=== PATIENT | female | born 1985 | race Native Hawaiian/Other Pacific Islander ===

== ENCOUNTER 2016-12-10 08:36 | Outpatient (CLI) | payer OTHER | END 2016-12-10 19:04 | disposition home or self-care (01) | LOC: MRI 08:36 | DX: M54.17 Radiculopathy, lumbosacral region (principal) ==

== ENCOUNTER 2017-06-26 19:26 | Emergency (ER) | payer OTHER ==
[~2017-06-26] VITALS: Ht 167.6 cm; Wt 139.3 kg
[2017-06-26 21:48] LABS: PLATELET COUNT 336 K/uL (152-353)
[2017-06-26 21:56] LABS: SODIUM 138 mmol/L (136-145)
[2017-06-27 05:03] VITALS: BP 111/63; TEMP 98
== END 2017-06-27 05:06 | disposition short-term general hospital (02) ==
LOC: ED 19:26
PROVIDERS: Specialist
DX: K35.89 Other acute appendicitis (principal)
CPT/HCPCS: 36415; 80053; 81000; 81025; 82150; 83690; 85027; 96365; 96366; 99285; J0690; J2405; J3490; Q9963

== ENCOUNTER 2017-06-27 05:00 | Outpatient (CLI) | payer OTHER | END 2017-06-27 05:33 | disposition short-term general hospital (02) | LOC: AMB 05:00 | DX: K35.89 Other acute appendicitis (principal) | CPT/HCPCS: A0425; A0427 ==

== ENCOUNTER 2018-08-31 12:23 | Outpatient (CLI) | payer OTHER | END 2018-08-31 12:36 | disposition short-term general hospital (02) | LOC: AMB 12:23 | DX: R07.9 Chest pain, unspecified (principal); R06.02 Shortness of breath | CPT/HCPCS: A0425; A0427 ==

== ENCOUNTER 2018-08-31 12:44 | Emergency (ER) | payer OTHER ==
[~2018-08-31] VITALS: Ht 167.6 cm; Wt 140.6 kg
[2018-08-31 12:55] LABS: PLATELET COUNT 343 K/uL (152-353)
[2018-08-31 13:13] LABS: POTASSIUM 3.7 mmol/L (3.6-5.2); SODIUM 139 mmol/L (136-145)
[2018-08-31 14:35] VITALS: BP 110/56; TEMP 98
== END 2018-08-31 14:35 | disposition home or self-care (01) ==
LOC: ED 12:44
PROVIDERS: Family Medicine
DX: F41.9 Anxiety disorder, unspecified (principal); R11.2 Nausea with vomiting, unspecified; R06.09 Other forms of dyspnea; R00.1 Bradycardia, unspecified
CPT/HCPCS: 80053; 81000; 81025; 82550; 82553; 84484; 85027; 93005; 99283

== ENCOUNTER 2019-07-08 20:08 | Emergency (ER) | payer OTHER ==
[~2019-07-08] VITALS: Ht 167.6 cm; Wt 140.6 kg
[2019-07-08 21:12] LABS: PLATELET COUNT 303 K/uL (152-353)
[2019-07-08 21:21] LABS: POTASSIUM 4.2 mmol/L (3.6-5.2)
[2019-07-08 23:00] VITALS: BP 144/75; TEMP 98.4
== END 2019-07-08 23:00 | disposition home or self-care (01) ==
LOC: ED 20:08
PROVIDERS: Hospitalist
DX: M54.89 Other dorsalgia (principal); G89.29 Other chronic pain
CPT/HCPCS: 36415; 80053; 81000; 82150; 83690; 85027; 96360; 96375; 99284; J1885; J2405

== ENCOUNTER 2020-11-19 20:41 | Emergency (ER) | payer OTHER ==
[~2020-11-19] VITALS: Ht 167.6 cm; Wt 149.7 kg
[2020-11-19 20:45] VITALS: BP 134/86; TEMP 98.7
== END 2020-11-19 21:14 | disposition home or self-care (01) ==
LOC: ED 20:41
DX: L50.8 Other urticaria (principal); X58.XXXA Exposure to other specified factors, initial encounter; Y92.89 Other specified places as the place of occurrence of the external cause
CPT/HCPCS: 99282